=== PATIENT | female | born 1980 | race Two or more races ===

== ENCOUNTER 2019-02-27 23:17 | Emergency (ER) | payer SELFPAY ==
[~2019-02-27] VITALS: Ht 167.6 cm; Wt 59.4 kg
--- NOTE | 2019-02-27 23:22 | NUR ---
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 PT DENIES DIARRHEA. PT AMBULATED TO THE BATHROOM WITH A STEADY GAIT. URINE SAMPLE OBTAINED. PT THEN AMBULATED TO ER 11 WITH A STEADY GAIT. PT APPEARS HOMELESS AND RESCUE STATED THAT THE PT WAS FROM [place] AND LOOKING FOR A PLACE TO STAY.
[2019-02-27 23:56] LABS: APPEARANCE,URINE Clear (CLEAR); BILIRUBIN,URINE Negative (NEGATIVE); BLOOD, URINE Trace-lysed Ery/uL (NEGATIVE); COLOR,URINE Yellow (YELLOW); KETONES,URINE Trace (NEGATIVE); LEUKOCYTE ESTERASE ,URINE Negative (NEGATIVE); NITRITE, URINE Negative (NEGATIVE); PROTEIN,URINE Negative (NEGATIVE); UGLUCOSE Negative (NEGATIVE)
[2019-02-28] MEDS ORDERED: MAG HYDROX/AL HYDROX/SIMETH 30 ML UDC PO ONE
[2019-02-28] MEDS ORDERED: KETOROLAC TROMETHAMINE INJ 30 MG/ML VIAL IV ONE
[2019-02-28] MEDS ORDERED: ONDANSETRON HCL/PF 4 MG/2 ML VIAL IVP ONE
[2019-02-28] MEDS ORDERED: IV NS 0.9% 1,000 ML BAG IV ONE
[2019-02-28 00:05] LABS: BASOPHILS % (AUTO) 0.6 % (0.0-2.0); EOSINOPHILS % (AUTO) 2.8 % (0.0-6.0); HEMATOCRIT 39 % (33-45); HEMOGLOBIN 12.8 g/dL (11.5-14.8); LYMPHOCYTES # (AUTO) 1.8 /CMM (0.8-4.8); LYMPHOCYTES % (AUTO) 23.4 % (20.0-44.0); MEAN CORPUSCULAR HGB CONC 33 g/dl (31.0-36.0); MEAN CORPUSCULAR VOLUME 93 fL (82-100); MONOCYTES # (AUTO) 0.6 /CMM (0.1-1.30); MONOCYTES % (AUTO) 8.3 % (2.0-12.0); NEUTROPHILS % (AUTO) 64.9 % (43.0-81.0); PLATELET COUNT (AUTO) 226 /CMM (150-450); RED BLOOD CELL COUNT(AUTO) 4.14 MIL/uL (4.0-5.2); WHITE BLOOD COUNT (AUTO) 7.6 K/uL (4.3-11.0)
[2019-02-28] MEDS ORDERED: ONDANSETRON HCL/PF 4 MG/2 ML VIAL ONE (00:05)
[2019-02-28] MEDS ORDERED: KETOROLAC TROMETHAMINE 15 MG/ML VIAL ONE (00:05)
[2019-02-28] MEDS ORDERED: MAG HYDROX/AL HYDROX/SIMETH 30 ML UDC ONE (00:05)
[2019-02-28 00:19] LABS: BACTERIA,URINE None seen /HPF (None Seen); RBC,URINE 0-2 /HPF (0-2); SQUAMOUS EPITHELIAL CELL,UR Few /HPF (None Seen); WBC,URINE 0-2 /HPF (0-3)
[2019-02-28 00:30] VITALS: BP 98/79
[2019-02-28 00:44] LABS: CALCIUM, SERUM 7.9 mg/dL (8.5-10.1); CREATININE 0.6 mg/dL (0.6-1.3); POTASSIUM 3.8 mmol/L (3.5-5.1)
[2019-02-28 00:49] LABS: ALBUMIN 3.2 g/dL (3.4-5.0); BILIRUBIN,TOTAL 0.2 mg/dL (0.2-1.0); TOTAL PROTEIN, SERUM 6.2 g/dL (6.4-8.2)
--- NOTE | 2019-02-28 01:26 | NUR ---
Patient discharged to home in stable condition. Written and verbal after care instructions given. Patient verbalizes understanding of instruction. IV removed. Catheter intact and site benign. Pressure and 4x4 applied to site. No bleeding noted. HOMELESS WAIVER SIGNED AND IN THE CHART. PT REFUSED FOOD AND PT IS WAITING IN THE LOBBY FOR A TAP CARD. PT WILL TRY ONE OF THE SHELTERS ON THE LIST.
--- NOTE | 2019-02-28 01:30 | NUR ---
PT REFUSED FOOD AT THIS TIME. PT REC'D A JACKET AND A CARDIGAN. PT ALSO REC'D A TAP CARD.
== END 2019-02-28 01:32 | disposition home or self-care (01) ==
LOC: ER 23:19
DX: R10.9 Unspecified abdominal pain (principal); R11.2 Nausea with vomiting, unspecified; Z59.0 Homelessness
CPT/HCPCS: 36415; 80048; 80076; 81001; 84703; 85025; 96361; 96374; 96375; 99283; J1885; J2405; J7030; 81000-TC